=== PATIENT | male | born 1965 | race Two or more races ===

== ENCOUNTER 2017-02-06 09:53 | Emergency (ER) | payer MEDICAID ==
[~2017-02-06] VITALS: Ht 175.3 cm; Wt 108.9 kg
[2017-02-06 10:11] VITALS: BP 137/93
== END 2017-02-06 12:10 | disposition left against medical advice (07) ==
LOC: ER 09:53
DX: S41.131A Puncture wound without foreign body of right upper arm, initial encounter (principal); Z53.21 Procedure and treatment not carried out due to patient leaving prior to being seen by health care provider; X58.XXXA Exposure to other specified factors, initial encounter; Y93.89 Activity, other specified; Y99.8 Other external cause status; Y92.89 Other specified places as the place of occurrence of the external cause

== ENCOUNTER 2019-01-07 20:01 | Emergency (ER) | payer MEDICAID ==
[~2019-01-07] VITALS: Ht 175.3 cm; Wt 97.5 kg
[2019-01-07 20:27] VITALS: BP 151/96
[2019-01-07] MEDS ORDERED: cefTRIAXone SOD 1,000 MG VL IM ONE (23:00)
== END 2019-01-07 23:08 | disposition home or self-care (01) ==
LOC: ER 20:19
DX: K04.7 Periapical abscess without sinus (principal); K21.9 Gastro-esophageal reflux disease without esophagitis; F17.210 Nicotine dependence, cigarettes, uncomplicated; F12.10 Cannabis abuse, uncomplicated
CPT/HCPCS: 96372; 99283; J0696

== ENCOUNTER 2019-07-12 14:31 | Inpatient (IN) | payer MEDICAID ==
[~2019-07-12] VITALS: Ht 177.8 cm; Wt 87.3 kg
[2019-07-12] MEDS ORDERED: SODIUM CHLORIDE 0.9% 1,000 ML IV ONE ×2 (15:43→16:27)
[2019-07-12 15:45] LABS: Basophils # (auto) 0.1 uL; Eosinophils # (auto) 0.1 uL; Monocytes # (auto) 0.5 uL; Neutrophils # (auto) 4.4 uL; White Blood Cell 6.4 10^3/uL (4.4-10.8)
[2019-07-12] MEDS ORDERED: LORazepam 2MG/ML-1ML VIAL IV ONE (15:45)
[2019-07-12 15:47] LABS: Basophils % (auto) 0.9 % (0.0-2.0); Eosinophils % (auto) 1.1 % (0.0-7.0); Hematocrit 30.6 % (41.0-53.0); Hemoglobin 9.9 g/dL (13.5-17.5); Lymphocytes # (auto) 1.4 uL; Lymphocytes % (auto) 21.8 % (10.0-50.0); Mean Corpuscular Hemoglobin 22.6 pg (28.0-32.0); Mean Corpuscular Hgb Conc. 32.3 g/dL (32.0-36.0); Mean Corpuscular Volume 69.9 fL (80.0-100.0); Monocytes % (auto) 8.1 % (0.0-12.0); Neutrophils % (auto) 68.1 % (37.0-80.0); Platelet Count (auto) 201 10^3/uL (140-450); Red Blood Cells 4.37 10^6/uL (4.5-5.90)
[2019-07-12 15:49] LABS: Red Cell Distribution Width 21.8 % (11.8-14.3)
[2019-07-12 16:10] LABS: BUN/Creatinine Ratio 21.4; Calcium 8.9 mg/dL (8.5-10.1); Potassium 3.4 mmol/L (3.5-5.1)
[2019-07-12 16:13] LABS: Bilirubin, Total 0.2 mg/dL (0.2-1.0); Total Protein 7.1 g/dL (6.4-8.2)
[2019-07-12] MEDS ORDERED: SODIUM CHLORIDE 0.9% 500 ML IVB ONE (16:27)
[2019-07-12] MEDS ORDERED: PANTOPRAZOLE 40 MG/10 ML VIAL INJ IV STA (16:27)
[2019-07-12] MEDS ORDERED: OCTREOTIDE ACETATE 500 MCG in SODIUM CHL 0.9% 100 ML IV ONE (16:30)
[2019-07-12] MEDS ORDERED: PANTOPRAZOLE 80 MG in SODIUM CHL 0.9% 60 ML IV ONE (16:30)
[2019-07-12] MEDS ORDERED: METOCLOPRAMIDE HCL 5MG/ml INJ 2ml VIAL IV ONE (16:30)
[2019-07-12] MEDS ORDERED: IOHEXOL 300 MG/ML 100ML BOTTLE IJ ONE ×2 (16:46→19:08)
[2019-07-12 16:55] LABS: INR 1.06 (0.9-1.15); Partial Thromboplastin Time 21.7 sec (23.64-32.05)
[2019-07-12] MEDS ORDERED: POTASSIUM EFFERVESENT TAB 25 MEQ PO ONE (17:45)
[2019-07-12 18:52] LABS: Amphetamine Screen, Urine POSITIVE (NEGATIVE); Barbiturate Scree,Urine NEGATIVE (NEGATIVE); Benzodiazephine Screen, Urine NEGATIVE (NEGATIVE); Cannabinoid Screen, Urine POSITIVE (NEGATIVE); Cocaine Screen, Urine NEGATIVE (NEGATIVE); Phencyclidine Screen, Urine NEGATIVE (NEGATIVE)
[2019-07-12 18:59] LABS: Urine Bacteria NONE SEEN /hpf (None Seen); Urine Blood Negative /uL (Negative); Urine Mucus FEW (None Seen); Urine Specific Gravity 1.047 (1.001-1.035); Urine WBC 25 /hpf (0 - 3)
[2019-07-12 19:00] LABS: Opiate Scree,Urine NEGATIVE (NEGATIVE)
[2019-07-12] MEDS ORDERED: MORPHINE SULF INJ 2 MG/ML SYRINGE 1ML IV PRN (19:00)
[2019-07-12] MEDS ORDERED: PANTOPRAZOLE 40 MG/10 ML VIAL INJ IV ONE (19:00)
[2019-07-12] MEDS ORDERED: MORPHINE SULFATE 4 MG/ML SYR/VIAL IV PRN ×2 (19:00)
[2019-07-12] MEDS ORDERED: LORazepam 2MG/ML-1ML VIAL IV PRN (19:00)
[2019-07-12] MEDS ORDERED: NITROGLYCERIN 0.4 MG SL TAB SL PRN (19:00)
[2019-07-12] MEDS ORDERED: PROMETHAZINE HCL 25 MG/ML 1ML IV PRN (19:00)
[2019-07-12] MEDS ORDERED: DEXTROSE (50%) 50ML SYRG IV PRN (19:00)
[2019-07-12] MEDS: SODIUM CHLORIDE 0.9% 1,000 ML IV SCH (19:30)
[2019-07-12] MEDS ORDERED: CEFOTETAN 1GM/D5W 50ML BAG 50 ML IV SCH (20:00)
--- NOTE | 2019-07-12 20:59 | NUR ---
HOSPITALIST PAGED PATIENT CAME UP FROM ER WITH AN NG TUBE IN PLACE. NO ORDERS FOR AN NG TUBE OBTAINED ASIDE FROM A VERBAL ORDER STATED RECEIVED BY ER NURSE CHARLES. PER ER NURSE, VERBAL ORDER STATED TO BE SET UP ON LIS. WILL OBTAIN ORDERS FROM HOSPITALIST.
[2019-07-12 22:00] VITALS: BP 102/85
--- NOTE | 2019-07-12 22:00 | NUR ---
ALTERNATIVE ANTIBIOTICS RECEIVED ORDERS FOR ANTIBIOTIC MEDICATION NOT AVAILABLE IN HOSPITAL AT THIS TIME. ORDERS RECEIVED FOR ALTERNATIVE ANTIBIOTIC FOR PATIENT BY HOSPITALIST. WILL ADMINISTER TO PATIENT AND WILL CONTINUE TO MONITOR.
[2019-07-12] MEDS ORDERED: ceFAZolin 1GM/50ML 100 ML IV ONE (22:33)
[2019-07-12] MEDS: ceFAZolin 1GM 2 GM in D5W 5% 100 ML IV SCH (22:38)
[2019-07-12 22:53] VITALS: BP 102/85
[2019-07-13 01:13] LABS: Hematocrit 27.6 % (41.0-53.0); Hemoglobin 8.7 g/dL (13.5-17.5)
[2019-07-13] MEDS: ACCU-CHEK COMFORT CURVE STRIP VI SCH ×4 (01:26→17:30)
[2019-07-13] MEDS: SODIUM CHLORIDE 0.9% 1,000 ML IV SCH ×2 (04:56→14:47)
[2019-07-13 05:20] VITALS: BP 121/81
[2019-07-13 05:51] LABS: Basophils # (auto) 0.1 uL; Basophils % (auto) 1.2 % (0.0-2.0); Eosinophils # (auto) 0.1 uL; Eosinophils % (auto) 2.3 % (0.0-7.0); Hematocrit 26.3 % (41.0-53.0); Hemoglobin 8.4 g/dL (13.5-17.5); Lymphocytes # (auto) 1.3 uL; Lymphocytes % (auto) 30.3 % (10.0-50.0); Mean Corpuscular Hemoglobin 22.3 pg (28.0-32.0); Mean Corpuscular Hgb Conc. 31.8 g/dL (32.0-36.0); Monocytes # (auto) 0.5 uL; Monocytes % (auto) 10.9 % (0.0-12.0); Neutrophils # (auto) 2.5 uL; Neutrophils % (auto) 55.3 % (37.0-80.0); Platelet Count (auto) 174 10^3/uL (140-450); Potassium 4.1 mmol/L (3.5-5.1); Red Blood Cells 3.75 10^6/uL (4.5-5.90); White Blood Cell 4.4 10^3/uL (4.4-10.8)
[2019-07-13 05:58] LABS: Albumin 2.8 g/dL (3.4-5.0); BUN/Creatinine Ratio 19.6; Bilirubin, Total 0.3 mg/dL (0.2-1.0); Calcium 7.6 mg/dL (8.5-10.1); Total Protein 6.3 g/dL (6.4-8.2)
[2019-07-13 06:04] LABS: Red Cell Distribution Width 22.1 % (11.8-14.3)
[2019-07-13] MEDS: ceFAZolin 1GM 2 GM in D5W 5% 100 ML IV SCH ×2 (06:54→14:47)
--- NOTE | 2019-07-13 07:30 | NUR ---
Opening Shift Note RECEIVED REPORT FORM NOC RN. Assumed care of patient, awake and alert. No S/S of distress/SOB or pain. BED IN LOWEST, LOCKED POSITION WITH SIDERAILS UP x2 AND CALL LIGHT WITHIN REACH. Instructed on POC and to call for assist PRN, will continue to monitor for changes Q1hr and PRN.
[2019-07-13 08:10] VITALS: BP 125/80
[2019-07-13 09:00] VITALS: BP 125/80
[2019-07-13] MEDS: PANTOPRAZOLE 40 MG/10 ML VIAL INJ IV SCH (09:36)
[2019-07-13 11:44] LABS: Hemoglobin 7.9 g/dL (13.5-17.5)
[2019-07-13 11:46] LABS: Hematocrit 24.9 % (41.0-53.0)
--- NOTE | 2019-07-13 12:45 | NUR ---
PATIENT SELF D/C'D NG TUBE. PATIENT STATED, "DOCTOR SAID IF I TOLERATED WATER IT COULD COME OUT."
[2019-07-13 13:00] VITALS: BP 112/76
[2019-07-13 17:00] VITALS: BP 117/82
--- NOTE | 2019-07-13 20:10 | NUR ---
received pt from day rn poc reviewed
[2019-07-13 22:00] VITALS: BP 115/78
--- NOTE | 2019-07-13 22:30 | NUR ---
discussed with pt surgical plans for 07/14/19, pt verbalized understanding of procedure and understands npo at midnight.
[2019-07-14] MEDS: ACCU-CHEK COMFORT CURVE STRIP VI SCH ×3 (00:22→12:09)
[2019-07-14] MEDS: ceFAZolin 1GM 2 GM in D5W 5% 100 ML IV SCH ×2 (00:23→06:32)
[2019-07-14 05:21] VITALS: BP 97/58
--- NOTE | 2019-07-14 06:17 | NUR ---
consents signed for egd, pt has been npo all questions and concerns addressed
[2019-07-14 06:29] LABS: Basophils # (auto) 0 uL; Eosinophils # (auto) 0.1 uL; Hemoglobin 7.2 g/dL (13.5-17.5); Monocytes # (auto) 0.3 uL; White Blood Cell 3.3 10^3/uL (4.4-10.8)
[2019-07-14] MEDS: SODIUM CHLORIDE 0.9% 1,000 ML IV SCH ×2 (06:32→12:09)
[2019-07-14 06:34] LABS: Basophils % (auto) 0.6 % (0.0-2.0); Eosinophils % (auto) 2.6 % (0.0-7.0); Hematocrit 21.5 % (41.0-53.0); Lymphocytes % (auto) 31.5 % (10.0-50.0); Mean Corpuscular Hemoglobin 22.9 pg (28.0-32.0); Mean Corpuscular Hgb Conc. 33.5 g/dL (32.0-36.0); Mean Corpuscular Volume 68.4 fL (80.0-100.0); Monocytes % (auto) 9.3 % (0.0-12.0); Neutrophils # (auto) 1.9 uL; Nucleated Red Blood Cells % 0.1 %; Platelet Count (auto) 155 10^3/uL (140-450); Red Blood Cells 3.14 10^6/uL (4.5-5.90)
[2019-07-14 06:47] LABS: Albumin 2.5 g/dL (3.4-5.0); Calcium 7.4 mg/dL (8.5-10.1); Potassium 3.7 mmol/L (3.5-5.1)
[2019-07-14 06:50] LABS: BUN/Creatinine Ratio 18.1; Bilirubin, Total 0.3 mg/dL (0.2-1.0); Total Protein 5.5 g/dL (6.4-8.2)
[2019-07-14 07:02] LABS: Red Cell Distribution Width 21.8 % (11.8-14.3)
--- NOTE | 2019-07-14 07:14 | NUR ---
report given to am nurse poc reviewed
[2019-07-14] MEDS ORDERED: POVIDONE IODINE 10 % TOPICAL OINT 30GM TOP ONE (07:19)
[2019-07-14] MEDS ORDERED: LIDOCAINE 1% HCL (LOCAL ANESTH.) INJ 20ML MDV ONE (07:22)
[2019-07-14] MEDS ORDERED: SUCCINYLCHOLINE CHLORIDE 20 MG/ML 10ML VIAL IV ONE (07:22)
[2019-07-14] MEDS ORDERED: fentaNYL CITRATE 100 MCG/2 ML VL ONE ×2 (07:42→08:32)
[2019-07-14] MEDS ORDERED: HYDROmorphone HCL 2 MG/ML VL ONE (07:42)
[2019-07-14] MEDS ORDERED: MIDAZOLAM HCL 1MG/1ML-2 ML VIAL ONE (07:42)
[2019-07-14] MEDS ORDERED: ROCURONIUM 10MG/ML 10ML VIAL IV ONE (07:42)
[2019-07-14] MEDS ORDERED: SODIUM CHLORIDE LOCK 0 ML ONE (07:42)
[2019-07-14] MEDS ORDERED: PROPOFOL 10 MG/ML 20 ML IV ONE (07:42)
[2019-07-14] MEDS ORDERED: ONDANSETRON HCL 4 MG/2 ML VIAL ONE (07:42)
[2019-07-14] MEDS ORDERED: fentaNYL CITRATE 5 ML ONE (07:42)
--- NOTE | 2019-07-14 08:15 | NUR ---
OPENING SHIFT NOTE ASSUMED CARE OF PT. PT IS AWAKE AND ALERT. NO SOB OR SIGNS OF DISTRESS NOTED. CALLED [facility]. STATED THEY WOULD CALL FOR HIM AROUND 1000 FOR EGD. PT COMPLAINING ABOUT BEING NPO. REEDUCATED ABOUT REASON FOR THAT. FAMILY AT BEDSIDE. INSTRUCTED PT ON POC AND TO CALL FOR HELP PRN. BED IN LOWEST POSITION WITH SIDE RAILS UP X2. WILL CONTINUE TO MONITOR.
[2019-07-14] MEDS ORDERED: SODIUM CHLORIDE LOCK 10 ML ONE (08:31)
[2019-07-14] MEDS ORDERED: MIDAZOLAM HCL 5 MG/ML-1ML VIAL ONE (08:32)
[2019-07-14] MEDS ORDERED: diphenhdrAMINE HCL 50 MG/1 ML VL ONE (08:32)
[2019-07-14] MEDS ORDERED: LIDOCAINE VISCOUS 2% 15ML UD ONE (08:32)
[2019-07-14 09:00] VITALS: BP 110/76
[2019-07-14] MEDS: PANTOPRAZOLE 40 MG/10 ML VIAL INJ IV SCH (12:08)
--- NOTE | 2019-07-14 13:00 | NUR ---
PT ANANDA DISCOVERED PT WAS MISSING FROM ROOM. FOUND HIS 3 IVS IN THE SINK ALONG WITH TELE MONITOR. FAMILY IS AWARE AND CLAIMED HE HAD MENTIONED LEAVING AMA EARLIER. NOTIFIED CHARGE NURSE AND LEFT A MESSAGE FOR DR BAER. WILL MAKE INCIDENT REPORT.
== END 2019-07-14 13:00 | disposition left against medical advice (07) | DRG 253 ==
LOC: EDBD 14:31 → ER 14:36 → TELE 14:37 → TELE-WESTW 20:09
PROVIDERS: ADMIT Internal Medicine; ATTEND Internal Medicine
DX: K92.2 Gastrointestinal hemorrhage, unspecified (principal); K56.2 Volvulus; E44.0 Moderate protein-calorie malnutrition; D63.8 Anemia in other chronic diseases classified elsewhere; D50.0 Iron deficiency anemia secondary to blood loss (chronic); F12.90 Cannabis use, unspecified, uncomplicated; E87.6 Hypokalemia; G40.909 Epilepsy, unspecified, not intractable, without status epilepticus; K44.9 Diaphragmatic hernia without obstruction or gangrene; K21.9 Gastro-esophageal reflux disease without esophagitis; F15.10 Other stimulant abuse, uncomplicated; F17.210 Nicotine dependence, cigarettes, uncomplicated; Z68.27 Body mass index [BMI] 27.0-27.9, adult; J32.0 Chronic maxillary sinusitis; Z87.11 Personal history of peptic ulcer disease; R55 Syncope and collapse; Z53.29 Procedure and treatment not carried out because of patient's decision for other reasons
CPT/HCPCS: 36415; 70450; 71046; 71260; 74018; 74177; 80053; 80307; 81001; 82150; 82962; 83036; 83605; 83690; 83735; 83880; 85014; 85018; 85025; 85045; 85610; 85652; 85730; 86850; 86900; 86901; 86920; 93005; 93306; 96361; 96374; 96375; 99291; C9113; G0378; J0330; J0690; J2001; J2250; J2405; J2704; J7060

== ENCOUNTER 2021-08-10 21:26 | Emergency (ER) | payer MEDICAID ==
[~2021-08-10] VITALS: Ht 175.3 cm; Wt 93.0 kg
[2021-08-10 22:37] LABS: Basophils # (auto) 0 10 ^3/uL (0-0.2); Basophils % (auto) 0.6 % (0.0-2.0); Eosinophils # (auto) 0.1 10 ^3/uL (0-0.8); Eosinophils % (auto) 1.6 % (0.0-7.0); Hematocrit 25.6 % (41.0-53.0); Hemoglobin 7.9 g/dL (13.5-17.5); Lymphocytes # (auto) 1.3 10 ^3/uL (0.4-5.4); Lymphocytes % (auto) 26.4 % (10.0-50.0); Mean Corpuscular Hemoglobin 19.1 pg (28.0-32.0); Mean Corpuscular Hgb Conc. 30.8 g/dL (32.0-36.0); Mean Corpuscular Volume 61.9 fL (80.0-100.0); Monocytes # (auto) 0.6 10 ^3/uL (0-1.3); Monocytes % (auto) 13.1 % (0.0-12.0); Neutrophils # (auto) 2.8 10 ^3/uL (1.6-8.6); Neutrophils % (auto) 58.3 % (37.0-80.0); Nucleated Red Blood Cells % 0.1 %; Red Blood Cells 4.14 10^6/uL (4.5-5.90); White Blood Cell 4.8 10^3/uL (4.4-10.8)
[2021-08-10 22:38] LABS: Red Cell Distribution Width 32.9 % (11.8-14.3)
[2021-08-10 22:48] LABS: Anion Gap 6 (5-15); Blood Urea Nitrogen 16 mg/dL (7-18); Calcium 8.1 mg/dL (8.5-10.1); Carbon Dioxide 23 mmol/L (21-32); Chloride 112 mmol/L (98-107); Glucose 115 mg/dL (74-106); Potassium 4.1 mmol/L (3.5-5.1); Sodium 141 mmol/L (136-145)
[2021-08-10 22:49] LABS: INR 1.02 (0.9-1.15)
[2021-08-10 22:55] LABS: Alanine Aminotransferase 28 U/L (16-61); Alkaline Phosphatase 118 U/L (45-117); Aspartate Aminotransferase 14 U/L (15-37); BUN/Creatinine Ratio 22.2; Bilirubin, Total 0.1 mg/dL (0.2-1.0); GFR African American 145 mL/min; GFR Non-African American 120 mL/min; Total Protein 7.2 g/dL (6.4-8.2)
[2021-08-11] MEDS: MORPHINE SULFATE INJECTION 2 MG/ML SYRG IV ONE (03:39)
[2021-08-11] MEDS: IOHEXOL 350 MG/ML 100ML IJ ONE (03:45)
[2021-08-11 07:50] LABS: Urine Bacteria NONE SEEN /hpf (None Seen); Urine Blood Negative /uL (Negative); Urine Mucus FEW (None Seen); Urine Specific Gravity 1.023 (1.001-1.035); Urine WBC 4 /hpf (0 - 3)
[2021-08-11 09:40] VITALS: BP 133/84
== END 2021-08-11 09:41 | disposition home or self-care (01) ==
LOC: EDBD 21:26 → ER 21:26
DX: M79.662 Pain in left lower leg (principal); M79.18 Myalgia, other site; R79.1 Abnormal coagulation profile; E43 Unspecified severe protein-calorie malnutrition; F17.210 Nicotine dependence, cigarettes, uncomplicated; F12.10 Cannabis abuse, uncomplicated; F15.10 Other stimulant abuse, uncomplicated; K21.9 Gastro-esophageal reflux disease without esophagitis; Z68.30 Body mass index [BMI] 30.0-30.9, adult
CPT/HCPCS: 36415; 71275; 80053; 81001; 83880; 84484; 85025; 85379; 85610; 93005; 93971; 96374; 99285; J2270; Q9967

== ENCOUNTER 2021-08-16 12:07 | Emergency (ER) | payer MEDICAID ==
[~2021-08-16] VITALS: Ht 170.2 cm; Wt 90.7 kg
[2021-08-16] MEDS ORDERED: KETOROLAC TROMETH 30 MG/ML 1ML VIAL IV ONE (13:45)
[2021-08-16] MEDS ORDERED: HYDROcodone-ACET 5/325MG TAB PO ONE (14:00)
[2021-08-16 14:04] LABS: Basophils # (auto) 0 10 ^3/uL (0-0.2); Eosinophils # (auto) 0 10 ^3/uL (0-0.8); Eosinophils % (auto) 0.1 % (0.0-7.0); Hemoglobin 8.1 g/dL (13.5-17.5); Lymphocytes # (auto) 0.9 10 ^3/uL (0.4-5.4); Monocytes # (auto) 0.6 10 ^3/uL (0-1.3)
[2021-08-16 14:07] LABS: Basophils % (auto) 0.3 % (0.0-2.0); Hematocrit 26.3 % (41.0-53.0); Monocytes % (auto) 8.6 % (0.0-12.0); Neutrophils # (auto) 5.1 10 ^3/uL (1.6-8.6); Red Blood Cells 4.26 10^6/uL (4.5-5.90); White Blood Cell 6.6 10^3/uL (4.4-10.8)
[2021-08-16 14:20] LABS: Mean Corpuscular Volume 61.8 fL (80.0-100.0)
[2021-08-16 14:21] LABS: Mean Corpuscular Hgb Conc. 30.8 g/dL (32.0-36.0); Red Cell Distribution Width 33.3 % (11.8-14.3)
[2021-08-16 14:42] LABS: Amphetamine Screen, Urine NEGATIVE (NEGATIVE); Barbiturate Scree,Urine NEGATIVE (NEGATIVE); Benzodiazephine Screen, Urine NEGATIVE (NEGATIVE); Cannabinoid Screen, Urine NEGATIVE (NEGATIVE); Cocaine Screen, Urine NEGATIVE (NEGATIVE); Opiate Scree,Urine NEGATIVE (NEGATIVE); Phencyclidine Screen, Urine NEGATIVE (NEGATIVE)
[2021-08-16 17:51] LABS: Calcium 8.3 mg/dL (8.5-10.1); Potassium 4.1 mmol/L (3.5-5.1)
[2021-08-16 18:00] LABS: Albumin 1.9 g/dL (3.4-5.0); Bilirubin, Total 0.2 mg/dL (0.2-1.0); Total Protein 7.2 g/dL (6.4-8.2)
[2021-08-16] MEDS ORDERED: MORPHINE SULFATE INJECTION 2 MG/ML SYRG IV ONE (18:45)
[2021-08-16] MEDS ORDERED: ONDANSETRON HCL 4 MG/2 ML VIAL IV ONE (18:45)
[2021-08-16 18:57] VITALS: BP 124/73
== END 2021-08-16 20:20 | disposition home or self-care (01) ==
LOC: EDBD 12:07 → ER 12:07
DX: G45.9 Transient cerebral ischemic attack, unspecified (principal); F17.210 Nicotine dependence, cigarettes, uncomplicated; F12.10 Cannabis abuse, uncomplicated; F15.10 Other stimulant abuse, uncomplicated; K21.9 Gastro-esophageal reflux disease without esophagitis
CPT/HCPCS: 36415; 70450; 71045; 73562; 80053; 80307; 84484; 85025; 93005; 96374; 96375; 99285; J2270; J2405

== ENCOUNTER 2023-04-25 17:06 | Inpatient (IN) | payer MEDICAID ==
[~2023-04-25] VITALS: Ht 175.3 cm; Wt 85.1 kg
[2023-04-25 18:01] LABS: Basophils # (auto) 0 10 ^3/uL (0-0.2); Basophils % (auto) 0.2 % (0.0-2.0); Eosinophils # (auto) 0 10 ^3/uL (0-0.8); Hemoglobin 7.2 g/dL (13.5-17.5); Lymphocytes # (auto) 1.7 10 ^3/uL (0.4-5.4); Monocytes # (auto) 0.6 10 ^3/uL (0-1.3)
[2023-04-25 18:03] LABS: Hematocrit 23.7 % (41.0-53.0); Lymphocytes % (auto) 10.1 % (10.0-50.0); Mean Corpuscular Hemoglobin 16.7 pg (28.0-32.0); Mean Corpuscular Hgb Conc. 30.2 g/dL (32.0-36.0); Mean Corpuscular Volume 55.4 fL (80.0-100.0); Monocytes % (auto) 3.5 % (0.0-12.0); Neutrophils # (auto) 14.6 10 ^3/uL (1.6-8.6); Neutrophils % (auto) 86.2 % (37.0-80.0); Red Blood Cells 4.29 10^6/uL (4.5-5.90); White Blood Cell 16.9 10^3/uL (4.4-10.8)
[2023-04-25 18:22] LABS: Alanine Aminotransferase 12 U/L (7-40); Albumin 3.8 g/dL (3.2-4.8); Alkaline Phosphatase 73 U/L (46-116); Anion Gap 5.8 (5-15); Aspartate Aminotransferase 10 U/L (13-40); BUN/Creatinine Ratio 26.4 (10.0-20.0); Blood Urea Nitrogen 19 mg/dL (9-23); Calcium 8.8 mg/dL (8.5-10.1); Carbon Dioxide 23.2 mmol/L (20-30); Chloride 108 mmol/L (98-107); Glucose 125 mg/dL (74-106); Potassium 3.9 mmol/L (3.5-5.1); Sodium 137 mmol/L (136-145)
[2023-04-25 18:23] LABS: Bilirubin, Total 0.8 mg/dL (0.2-1.0); Total Protein 6.4 g/dL (5.7-8.2)
[2023-04-25 18:24] LABS: Red Cell Distribution Width 21.7 % (11.8-14.3)
[2023-04-25 18:48] LABS: Anisocytosis Slight; Platelet Estimate Adequate
[2023-04-25 18:49] LABS: Hypochromia Marked
[2023-04-25] MEDS ORDERED: SODIUM CHLORIDE 0.9% 1,000 ML IV ONE (19:15)
[2023-04-25 19:42] LABS: Magnesium 1.7 mg/dL (1.6-2.6)
[2023-04-25 19:50] LABS: INR 1.1 (0.9-1.15); Partial Thromboplastin Time 24.8 SEC (24.5-34.5); Prothrombin Time 11.5 sec (9.3-11.8)
[2023-04-25] MEDS ORDERED: PANTOPRAZOLE 40mg/50ML NS AE 50 ML IV ONE (21:00)
[2023-04-25] MEDS ORDERED: PANTOPRAZOLE 40 MG/10 ML VIAL INJ IV ONE (21:00)
[2023-04-25] MEDS ORDERED: hydrALAZINE HCL 20 MG/ML VL IV PRN (21:30)
[2023-04-25] MEDS ORDERED: MORPHINE SULFATE INJ 2 MG/ml SYRG IV PRN ×2 (21:30)
[2023-04-25] MEDS ORDERED: NITROGLYCERIN 0.4 MG SL TAB SL PRN (21:30)
[2023-04-25] MEDS ORDERED: ONDANSETRON HCL 4 MG/2 ML VIAL IV PRN (21:30)
[2023-04-26] VITALS (8 sets, daily range): BP systolic 107–136; BP diastolic 61–81; PULSE 82–98; RESP 14–19; TEMP 97.6–98.5; O2SAT 98–100
[2023-04-26] MEDS: PANTOPRAZOLE 40 MG/10 ML VIAL INJ IV SCH ×3 (02:39→22:48)
[2023-04-26] MEDS: SODIUM CHLORIDE 0.9% 1,000 ML IV SCH ×4 (02:51→22:50)
[2023-04-26 06:37] LABS: Amphetamine Screen, Urine Pos (NEGATIVE)
[2023-04-26 06:38] LABS: Barbiturate Scree,Urine Neg (NEGATIVE); Benzodiazephine Screen, Urine Neg (NEGATIVE); Cannabinoid Screen, Urine Pos (NEGATIVE); Cocaine Screen, Urine Neg (NEGATIVE); Opiate Scree,Urine Neg (NEGATIVE); Phencyclidine Screen, Urine Neg (NEGATIVE)
[2023-04-26 06:39] LABS: Alanine Aminotransferase 10 U/L (7-40); Albumin 3.4 g/dL (3.2-4.8); Alkaline Phosphatase 63 U/L (46-116); Anion Gap 4.9 (5-15); Aspartate Aminotransferase < 8 U/L (13-40); BUN/Creatinine Ratio 34.8 (10.0-20.0); Bilirubin, Total 0.4 mg/dL (0.2-1.0); Blood Urea Nitrogen 23 mg/dL (9-23); Calcium 8.2 mg/dL (8.5-10.1); Carbon Dioxide 22.1 mmol/L (20-30); Chloride 110 mmol/L (98-107); Glucose 110 mg/dL (74-106); Potassium 3.9 mmol/L (3.5-5.1); Sodium 137 mmol/L (136-145)
[2023-04-26 06:40] LABS: Total Protein 5.7 g/dL (5.7-8.2)
[2023-04-26 07:08] LABS: Urine Bacteria MOD /hpf (None Seen); Urine Blood Negative /uL (Negative); Urine Clarity HAZY (Clear); Urine Color Yellow (Yellow); Urine Mucus FEW (None Seen); Urine Protein, UAD TRACE (Negative); Urine Specific Gravity 1.023 (1.001-1.035); Urine Urobilinogen Normal (Negative); Urine WBC 4 /hpf (0 - 3); Urine pH 6.5 (5.0-8.0)
[2023-04-26 07:39] LABS: Basophils # (auto) 0 10 ^3/uL (0-0.2); Lymphocytes # (auto) 2.2 10 ^3/uL (0.4-5.4); Mean Corpuscular Volume 55.6 fL (80.0-100.0)
[2023-04-26 07:49] LABS: Basophils % (auto) 0.2 % (0.0-2.0); Eosinophils # (auto) 0 10 ^3/uL (0-0.8); Eosinophils % (auto) 0.2 % (0.0-7.0); Hematocrit 20.9 % (41.0-53.0); Lymphocytes % (auto) 13.9 % (10.0-50.0); Mean Corpuscular Hgb Conc. 30.6 g/dL (32.0-36.0); Monocytes # (auto) 0.8 10 ^3/uL (0-1.3); Monocytes % (auto) 4.9 % (0.0-12.0); Neutrophils # (auto) 12.5 10 ^3/uL (1.6-8.6); Neutrophils % (auto) 80.8 % (37.0-80.0); Red Blood Cells 3.75 10^6/uL (4.5-5.90); White Blood Cell 15.5 10^3/uL (4.4-10.8)
[2023-04-26 07:54] LABS: Red Cell Distribution Width 21.8 % (11.8-14.3)
[2023-04-26 07:59] LABS: Hemoglobin 6.4 g/dL (13.5-17.5)
[2023-04-26 09:33] LABS: Anisocytosis Slight; Hypochromia Marked; Platelet Estimate Adequate
[2023-04-26 09:34] LABS: Ovalocytes FEW
[2023-04-26] MEDS: CIPROFLOXACIN 400MG/200ML 200 ML IV SCH ×2 (12:51→22:48)
[2023-04-26 17:12] LABS: Hemoglobin 7.1 g/dL (13.5-17.5)
[2023-04-26 17:14] LABS: Hematocrit 22.8 % (41.0-53.0); Mean Corpuscular Hemoglobin 18.2 pg (28.0-32.0); Mean Corpuscular Volume 58.8 fL (80.0-100.0); Red Blood Cells 3.89 10^6/uL (4.5-5.90); Red Cell Distribution Width 26.5 % (11.8-14.3); White Blood Cell 8.1 10^3/uL (4.4-10.8)
[2023-04-26 17:15] LABS: Basophils % (manual) 0 (0.0-2.0); Blast Cells 0; Metamyelocytes % 0; Myelocytes % 0; Promyelocytes % 0; Reactive Lymphocytes 0
[2023-04-26 17:38] LABS: Anisocytosis Moderate; Band Neutrophils % (manual) 2; Eosinophils % (manual) 1 (0-7); Lymphocytes % (manual) 24 (10.0-50.0); Monocytes % (manual) 6 (0-12); Platelet Estimate Adequate
[2023-04-26 17:39] LABS: Hypochromia Marked
[2023-04-27] VITALS (11 sets, daily range): BP systolic 98–138; BP diastolic 54–83; PULSE 65–92; RESP 16–20; TEMP 97.6–98.9; O2SAT 93–99
[2023-04-27 06:13] LABS: Mean Corpuscular Hemoglobin 17.7 pg (28.0-32.0); Mean Corpuscular Hgb Conc. 29.6 g/dL (32.0-36.0); Mean Corpuscular Volume 59.7 fL (80.0-100.0); Red Blood Cells 3.85 10^6/uL (4.5-5.90); White Blood Cell 4.9 10^3/uL (4.4-10.8)
[2023-04-27 06:25] LABS: Albumin 3.3 g/dL (3.2-4.8); Alkaline Phosphatase 60 U/L (46-116); Anion Gap 4.2 (5-15); Aspartate Aminotransferase < 8 U/L (13-40); BUN/Creatinine Ratio 13.8 (10.0-20.0); Blood Urea Nitrogen 9 mg/dL (9-23); Calcium 8.1 mg/dL (8.7-10.4); Carbon Dioxide 22.8 mmol/L (20-30); Chloride 113 mmol/L (98-107); Glucose 92 mg/dL (74-106); Potassium 3.9 mmol/L (3.5-5.1); Sodium 140 mmol/L (136-145)
[2023-04-27 06:26] LABS: Bilirubin, Total 0.6 mg/dL (0.2-1.0); Total Protein 5.8 g/dL (5.7-8.2)
[2023-04-27 06:28] LABS: Red Cell Distribution Width 25.8 % (11.8-14.3)
[2023-04-27 06:29] LABS: Hemoglobin 6.8 g/dL (13.5-17.5)
[2023-04-27 06:31] LABS: Alanine Aminotransferase < 9 U/L (7-40); Basophils % (manual) 0 (0.0-2.0); Blast Cells 0; Metamyelocytes % 0; Myelocytes % 0; Promyelocytes % 0; Reactive Lymphocytes 0
[2023-04-27] MEDS: SODIUM CHLORIDE 0.9% 1,000 ML IV SCH ×3 (06:50→23:30)
[2023-04-27] MEDS ORDERED: FAMO20TA10 PO (06:57)
[2023-04-27] MEDS ORDERED: HYDR-4902 PO (06:57)
[2023-04-27] MEDS: PANTOPRAZOLE 40 MG/10 ML VIAL INJ IV SCH ×2 (10:08→21:42)
[2023-04-27] MEDS: CIPROFLOXACIN 400MG/200ML 200 ML IV SCH ×2 (10:08→21:42)
[2023-04-27 12:03] LABS: Band Neutrophils % (manual) 1; Eosinophils % (manual) 2 (0-7); Lymphocytes % (manual) 17 (10.0-50.0); Monocytes % (manual) 7 (0-12)
[2023-04-27 12:04] LABS: Platelet Estimate Adequate
[2023-04-27 12:05] LABS: Anisocytosis Moderate; Hypochromia Marked; Sickle Cells FEW
[2023-04-27] MEDS ORDERED: HYDROmorphone HCL 2 MG/ML VL/or syr IV PRN (14:00)
[2023-04-27] MEDS ORDERED: ONDANSETRON HCL 4 MG/2 ML VIAL IV PRN (14:00)
[2023-04-27] MEDS ORDERED: LIDOCAINE 2% (LOCAL ANESTH.) PF 5ml SDV ONE (14:01)
[2023-04-27] MEDS ORDERED: PROPOFOL 10 MG/ML 20 ML IV ONE (14:01)
[2023-04-27] MEDS ORDERED: fentaNYL CITRATE 100 MCG/2 ML VL ONE (14:01)
[2023-04-27] MEDS ORDERED: MIDAZOLAM HCL 2MG/2ML 2ml VIAL (1mg/ml) ONE (14:01)
[2023-04-27] MEDS ORDERED: ePHEDrine SULFATE 50 MG/ML AMP ONE (14:12)
[2023-04-27] MEDS ORDERED: ONDANSETRON HCL 4 MG/2 ML VIAL ONE (14:19)
[2023-04-27] MEDS ORDERED: GLYCOPYRROLATE 0.2 MG/ML 1ML VIAL ONE (14:19)
[2023-04-27] MEDS: SUCRALFATE 1 GM/10 ML ORAL SUSP PO SCH ×2 (19:08→21:42)
[2023-04-28] VITALS (7 sets, daily range): BP systolic 106–114; BP diastolic 59–65; PULSE 66–87; RESP 16–18; TEMP 97.6–98.4; O2SAT 96–100
[2023-04-28] MEDS: SUCRALFATE 1 GM/10 ML ORAL SUSP PO SCH ×4 (06:35→22:23)
[2023-04-28] MEDS: SODIUM CHLORIDE 0.9% 1,000 ML IV SCH (07:50)
[2023-04-28] MEDS: CIPROFLOXACIN 400MG/200ML 200 ML IV SCH ×2 (09:32→22:23)
[2023-04-28] MEDS: PANTOPRAZOLE 40 MG/10 ML VIAL INJ IV SCH ×2 (09:32→22:23)
[2023-04-29 00:11] LABS: Basophils # (auto) 0 10 ^3/uL (0-0.2); Monocytes # (auto) 0.5 10 ^3/uL (0-1.3); Neutrophils # (auto) 1.7 10 ^3/uL (1.6-8.6); Nucleated Red Blood Cells % 0.1 %
[2023-04-29 00:13] LABS: Basophils % (auto) 1.1 % (0.0-2.0); Eosinophils # (auto) 0.1 10 ^3/uL (0-0.8); Eosinophils % (auto) 3.2 % (0.0-7.0); Hematocrit 23.7 % (41.0-53.0); Hemoglobin 7.2 g/dL (13.5-17.5); Lymphocytes # (auto) 1.7 10 ^3/uL (0.4-5.4); Lymphocytes % (auto) 42.6 % (10.0-50.0); Mean Corpuscular Hgb Conc. 30.6 g/dL (32.0-36.0); Mean Corpuscular Volume 62.2 fL (80.0-100.0); Monocytes % (auto) 11.2 % (0.0-12.0); Neutrophils % (auto) 41.9 % (37.0-80.0); Red Blood Cells 3.81 10^6/uL (4.5-5.90)
[2023-04-29 00:16] LABS: Red Cell Distribution Width 29.9 % (11.8-14.3)
[2023-04-29 01:08] LABS: Anisocytosis Marked; Hypochromia Marked; Ovalocytes FEW; Platelet Estimate Adequate
[2023-04-29 05:00] VITALS: BP 145/86; PULSE 88; RESP 20; TEMP 97.8; O2SAT 91
[2023-04-29] MEDS: SUCRALFATE 1 GM/10 ML ORAL SUSP PO SCH ×2 (05:57→11:59)
[2023-04-29 08:00] VITALS: PULSE 85; PULSE 90; RESP 18
[2023-04-29 09:00] VITALS: BP 109/64; PULSE 97; RESP 19; TEMP 98.3; O2SAT 99
[2023-04-29] MEDS: PANTOPRAZOLE 40 MG/10 ML VIAL INJ IV SCH (09:29)
[2023-04-29] MEDS: CIPROFLOXACIN 400MG/200ML 200 ML IV SCH (09:29)
[2023-04-29] MEDS ORDERED: PANT40TA2 PO (11:31)
[2023-04-29] MEDS ORDERED: SUCR1TAB22 OR (11:31)
[2023-04-29 12:16] LABS: Basophils # (auto) 0 10 ^3/uL (0-0.2); Basophils % (auto) 1.2 % (0.0-2.0); Eosinophils # (auto) 0.1 10 ^3/uL (0-0.8); Eosinophils % (auto) 3.5 % (0.0-7.0); Hematocrit 24.8 % (41.0-53.0); Hemoglobin 7.6 g/dL (13.5-17.5); Lymphocytes # (auto) 1.2 10 ^3/uL (0.4-5.4); Lymphocytes % (auto) 33.4 % (10.0-50.0); Mean Corpuscular Hemoglobin 18.8 pg (28.0-32.0); Mean Corpuscular Hgb Conc. 30.7 g/dL (32.0-36.0); Mean Corpuscular Volume 61.4 fL (80.0-100.0); Monocytes # (auto) 0.5 10 ^3/uL (0-1.3); Monocytes % (auto) 14.8 % (0.0-12.0); Neutrophils # (auto) 1.6 10 ^3/uL (1.6-8.6); Neutrophils % (auto) 47.1 % (37.0-80.0); Nucleated Red Blood Cells % 0.4 %; Red Blood Cells 4.04 10^6/uL (4.5-5.90); Red Cell Distribution Width 30.5 % (11.8-14.3); White Blood Cell 3.5 10^3/uL (4.4-10.8)
[2023-04-29 12:49] LABS: Anisocytosis Marked; Hypochromia Marked; Ovalocytes MANY; Platelet Estimate Adequate; Target Cell FEW
[2023-04-29 13:00] VITALS: BP 103/61; PULSE 85; RESP 17; TEMP 98.5; O2SAT 100
== END 2023-04-29 17:27 | disposition home or self-care (01) | DRG 241 ==
LOC: ER 17:06 → TELE 21:24 → TELE-EAST 04-27 05:56
PROVIDERS: ADMIT Nurse Practitioner; ATTEND Nurse Practitioner
PROC: 30233N1 Transfusion of Nonautologous Red Blood Cells into Peripheral Vein, Percutaneous Approach (ICD-10-PCS; principal; 2023-04-26)
PROC: 0DB38ZX Excision of Lower Esophagus, Via Natural or Artificial Opening Endoscopic, Diagnostic (ICD-10-PCS; 2023-04-27)
PROC: 0DB68ZX Excision of Stomach, Via Natural or Artificial Opening Endoscopic, Diagnostic (ICD-10-PCS; 2023-04-27)
DX: K29.71 Gastritis, unspecified, with bleeding (principal); K20.91 Esophagitis, unspecified with bleeding; D62 Acute posthemorrhagic anemia; F17.210 Nicotine dependence, cigarettes, uncomplicated; F15.90 Other stimulant use, unspecified, uncomplicated; I10 Essential (primary) hypertension; K21.9 Gastro-esophageal reflux disease without esophagitis; N30.00 Acute cystitis without hematuria; K44.9 Diaphragmatic hernia without obstruction or gangrene
CPT/HCPCS: 36415; 71046; 74176; 80053; 80307; 81001; 82962; 83690; 83735; 84484; 85007; 85025; 85027; 85610; 85730; 86850; 86900; 86901; 86920; 87086; 93005; C9113; G0378; J2001; J2250; J2405; J2704